=== PATIENT | female | born 1995 | race Caucasian/White ===

== ENCOUNTER 2017-01-11 16:33 | Emergency (ER) | payer MEDICAID ==
[2017-01-11 16:39] VITALS: RESP 16
--- NOTE | 2017-01-11 16:49 | EDPHY ---
H & P Time Seen by Provider: 01/11/17 16:40 HPI/ROS: CHIEF COMPLAINT: Possible rabies exposure HISTORY OF PRESENT ILLNESS: 21-year-old immunocompetent female who recently returned from several weeks of doing field work in [place] , reports that the cabin she was staying in was infested with bats and she was recently told that she should get post exposure prophylaxis because of multiple bats living in this cabin which she was exposed to repeatedly for several weeks. She denies any bites. She states that she is feeling well and has no subjective complaints of pain or discomfort. No fever no chills. No nausea no vomiting. No dysphagia or odynophagia. Patient has never been previously vaccinated for rabies. The patient is a student at [employer], 1928–1983 as returning to [place] in 5 days REVIEW OF SYSTEMS: A ten point review of systems was performed and is negative with the exception of the items mentioned in the HPI PAST MEDICAL & SURGICAL HISTORY: No pertinent medical or surgical history SOCIAL HISTORY: nonsmoker. 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 Appears to be in no acute distress. 2) HEAD: Normocephalic, atraumatic 3) HEENT: Sclera anicteric. 4) NECK: Full range of motion, no meningeal signs. 5) LUNGS: Clear auscultation bilaterally, no wheezes, no rhonchi, no retractions. 6) HEART: Regular rate and rhythm, no murmur, no heave, no gallop. 7) ABDOMEN: No guarding, no rebound, no focal tenderness, 8) MUSCULOSKELETAL: Moving all extremities 9) BACK: no visual or palpable abnormality. 10) SKIN: No rash, no petechiae. 11) Psychiatric: Patient is oriented X 3, there is no agitation. DIFFERENTIAL DIAGNOSIS: no particular include but limited to rabies exposure, animal bite, active rabies Smoking Status: Never smoked Constitutional: Initial Vital Signs Temperature (C) 36.7 C 01/11/17 16:37 Heart Rate 69 01/11/17 16:37 Respiratory Rate 16 01/11/17 16:37 Blood Pressure 111/75 01/11/17 16:37 O2 Sat (%) 94 01/11/17 16:37 O2 Delivery Mode Room Air Allergies/Adverse Reactions: No Known Allergies Allergy (Unverified 01/11/17 16:37) Home Medications: Medication Instructions Recorded NK [No Known Home Meds] 01/11/17 MDM/Departure - MDM ED Course/Re-evaluation: Because this patient was staying in a cabin that she describes being infested with bats for several weeks will be started on post exposure prophylaxis. She is currently asymptomatic. She will receive immunoglobulin and rabies vaccine today. She will return to the ER for day 3 vaccine and then will need further dosages when she returns to [place] in 5 days. - Depart Disposition: Home, Routine, Self-Care Clinical Impression: Exposure to rabies Condition: Good Instructions: Rabies Vaccine (ED), Rabies Immune Globulin (By injection), Rabies Vaccine (By injection) Additional Instructions: You have received rabies vaccine rabies immunoglobulin today. Your dosing schedule is as follows Day 0: 01/11 You received the immuneglobulin and rabies vaccine today Day 3: 8 Return to the ER at [facility] for rabies vaccine Day 7: 01/18 Get the rabies vaccine in [place] on this day Day 14: 01/25 Get the rabies vaccine in [place] on this day Referrals: Return, to the ER on January 14 [Other] - 01/14/17 (You have received rabies vaccine rabies immunoglobulin today. Your dosing schedule is as follows Day 0: 01/11 You received the immuneglobulin and rabies vaccine today Day 3: 8 Return to the ER at [facility] for rabies vaccine Day 7: 8 Get the rabies vaccine in [place] on this day Day 14: 8 Get the rabies vaccine in [place] on this day )
[2017-01-11] MEDS ORDERED: RABIES IMMUNE GLOBULIN 300 UNIT/2 ML VIAL IM ONE (16:55)
[2017-01-11] MEDS ORDERED: RABIES VACC, HUMAN DIPLOID/PF 2.5 UNIT VIAL (RABAVERT) IM ONE (16:55)
[2017-01-11 17:43] VITALS: BP 112/78; PULSE 64; TEMP 97.9; O2SAT 95
== END 2017-01-11 17:43 | disposition home or self-care (01) ==
DX: Z20.3 Contact with and (suspected) exposure to rabies (principal); Z23 Encounter for immunization

== ENCOUNTER 2017-01-15 15:06 | Emergency (ER) | payer MEDICAID ==
[2017-01-15 15:16] VITALS: BP 102/67; PULSE 79; RESP 16; TEMP 98.4; O2SAT 98
[2017-01-15] MEDS ORDERED: RABIES VACC, HUMAN DIPLOID/PF 2.5 UNIT VIAL (RABAVERT) IM ONE (15:42)
--- NOTE | 2017-01-15 15:47 | EDPHY ---
H & P Stated Complaint: 2nd series rabies shot HPI/ROS: CHIEF COMPLAINT: Day 3 Rabavert injection HISTORY OF PRESENT ILLNESS: Patient presents for her 2nd rabies vaccine injection. She was here her 4 days ago for the 1st 1. This was due to living and a temporary housing scenario that was infested with bats. She denies any actual bites but she is uncertain as she has mosquito bites and superficial scratches. She was seen here and treated with the rabies immunoglobulin as well as the 1st dose of the rabies vaccine. She returns for the 2nd dose. She is flying back to [place] soon where she resides. She has arranged for the day 7 and day 14 injections to be performed through the health department. No other associated complaints or modifying factors. REVIEW OF SYSTEMS: Ten systems reviewed and are negative unless otherwise noted in the HPI PAST MEDICAL HISTORY: Denies SOCIAL HISTORY: Resides in [place]. Here for an sports management internship FAMILY HISTORY: Noncontributory EXAMINATION General Appearance: Alert, no distress Head: normocephalic, atraumatic Eyes: Pupils equal and round, no conjunctival pallor or injection ENT, Mouth: Mucous membranes moist. Airway patent Neck: Normal inspection, supple. No rigidity or meningismus Respiratory: No retractions or distress Cardiovascular: Regular rate. Good signs of perfusion Neurological: A&O, nonfocal, normal gait Skin: Warm and dry, no rash. No petechiae or purpura Extremities: Nontender, no pedal edema Psychiatric: Mood and affect normal DIFFERENTIAL DIAGNOSES: Including but not limited to possible exposure back, rabies vaccine MDM: 3:40 p.m. Patient presents for her 2nd injection of Rabavert. She received her days 0 injection on the . 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 She has no complaints. She is here for her day 3 injection. She is flying back to [place] tomorrow. She has arranged for day 7 and day 14 injection through the health department. She is discharged home stable condition. Follow up there in [place] for the remainder of the post exposure prophylaxis. SUPERVISION: This patient was independently evaluated without direct examination by the attending physician. Case was discussed with attending physician. Source: Patient Exam Limitations: No limitations - Personal History LMP (Females 10-55): 1-7 Days Ago Current Tetanus/Diphtheria Vaccine: Yes Current Tetanus Diphtheria and Acellular Pertussis (TDAP): Yes - Medical/Surgical History Hx Asthma: No Hx Chronic Respiratory Disease: No Hx Diabetes: No Hx Cardiac Disease: No Hx Renal Disease: No Hx Cirrhosis: No Hx Alcoholism: No Hx HIV/AIDS: No Hx Splenectomy or Spleen Trauma: No Other PMH: denies - Social History Smoking Status: Never smoked Constitutional: Initial Vital Signs Temperature (C) 98.4 F 01/15/17 15:12 Heart Rate 79 01/15/17 15:12 Respiratory Rate 16 01/15/17 15:12 Blood Pressure 102/67 01/15/17 15:12 O2 Sat (%) 98 01/15/17 15:12 O2 Delivery Mode Room Air Allergies/Adverse Reactions: No Known Allergies Allergy (Unverified 01/11/17 16:37) Home Medications: Medication Instructions Recorded NK [No Known Home Meds] 01/11/17 Departure - Departure Disposition: Home, Routine, Self-Care Clinical Impression: Need for post exposure prophylaxis for rabies Condition: Good Instructions: Rabies Vaccine (By injection), Rabies Immune Globulin (By injection), Rabies (ED) Additional Instructions: 1. Follow up with your Health Department and plan after the day 7 and day 14 rabies vaccine injections Referrals: NONE *PRIMARY CARE P,. [Primary Care Provider] - As per Instructions Jocelyn Olson MD [[facility] Primary Care Provider] - As per Instructions
== END 2017-01-15 15:55 | disposition home or self-care (01) ==
PROC: 3E0234Z Introduction of Serum, Toxoid and Vaccine into Muscle, Percutaneous Approach (ICD-10-PCS; principal; 2017-01-15)
DX: Z20.3 Contact with and (suspected) exposure to rabies (principal); Z23 Encounter for immunization